=== PATIENT | male | born 1955 ===

== ENCOUNTER → 2020-06-13 11:29 | Outpatient (CLI) | payer MEDICARE, SELFPAY ==
--- NOTE | 2020-06-13 11:35 | DI.MRI.S_ITS ---
PROCEDURE: MR KNEE LT WO CON INDICATIONS: Unspecified internal derangement of left knee TECHNIQUE: Noncontrast sagittal PD fast spin echo and T2 fast spin echo with fat saturation, sagittal 3-D FLASH with fat saturation; coronal T1 spin echo and PD fast spin echo with fat saturation, and axial PD fast spin echo with fat saturation through the knee. COMPARISON: [facility] [place], CR, XR KNEE 4+ VIEWS LEFT, 05/29/2020, 11:12. FINDINGS: Image quality: Excellent. Menisci: Linear oblique and amorphous high signal intensity within the medial meniscal body and posterior horn is present, demonstrating inferior articular surface extension, indicating complex tearing. Lateral meniscus is intact. Cruciate ligaments: The anterior and posterior cruciate ligaments appear intact. Medial structures: There is moderate to high-grade tearing of the proximal and mid aspect of the medial collateral ligament, which demonstrates moderate surrounding T2 signal elevation. Visualized portions of the pes anserinus tendons appear normal. Small amount of medial bursal fluid. Lateral structures: The lateral collateral ligament, long and short heads of the biceps femoris tendon appear intact. The popliteus tendon appears normal. Iliotibial band appears normal. Anterior structures: The quadriceps and patellar tendons appear intact. Patellar alignment is normal. No femoral trochlear dysplasia or ventral trochlear prominence. No edema in the infrapatellar fat pad. Bones and cartilage: No bone marrow contusions or fractures. Mild articular cartilage loss diffusely overlies the weight-bearing aspects of the medial femoral condyle and medial tibial plateau. There is a focal region of moderate articular cartilage loss overlying the lateral patellar apex measuring roughly 10 mm. Joint space: There is physiologic knee joint fluid. No Malin's cyst. Normal appearing synovial plicae are incidentally noted. IMPRESSION: 1. Tricompartmental osteoarthritis with associated articular cartilage loss. 2. Complex tearing of the medial meniscus. 3. Moderate high-grade tearing of the medial collateral ligament. 4. Medial bursitis. Dictated by: Jen Selby M.D. on 06/13/2020 at 13:20 Approved by: Jen Selby M.D. on 06/13/2020 at 13:23
== END ==
PROVIDERS: Referring Provider Orthopaedic Surgery Adult Reconstructive Orthopaedic Surgery; Visit Provider Orthopaedic Surgery Adult Reconstructive Orthopaedic Surgery
DX: M70.52 Other bursitis of knee, left knee (principal); S83.242A Other tear of medial meniscus, current injury, left knee, initial encounter; M17.12 Unilateral primary osteoarthritis, left knee
CPT/HCPCS: 73721

== ENCOUNTER → 2022-05-14 06:34 | Outpatient (CLI) | payer OTHER, SELFPAY ==
--- NOTE | 2022-05-14 07:03 | DI.ECHO.S_ITS ---
Interpretation Summary 1) Mildly to moderately enlarged left ventricle with moderately to severely reduced systolic function (EF 30-35%). 2) Global hypokinesis that is severe in the inferolateral wall and basal anterolateral wall. 3) Mildly enlarged right ventricle with low normal function. 4) There is critically severe aortic stenosis (valve area 0.43cm2, mean gradient 77mmHg, severity ratio 0.13). 5) There is moderate aortic regurgitation. 6) There is moderate mitral regurgitation. 7) No prior Echo available for comparison. Recommend urgent cardiology consultation. [facility] Patient previous findings: Max velocity of 3.9, Mean PG 36mmhg and Aortic valve area of 0.85cm2. Procedure: A two-dimensional transthoracic echocardiogram with color flow and Doppler was performed. The study quality was technically adequate. There is no prior echocardiogram noted for this patient. The patient was in sinus rhythm with heart rates between 60-67 bpm during the exam. Left Ventricle: The left ventricle is mild-moderately dilated. The estimated left ventricular end diastolic volume is 186 ml. The ejection fraction is estimated to be 30-35%. Global hypokinesis that is severe in the inferolateral wall and basal anterolateral wall. Right Ventricle: The right ventricle is mildly dilated. Right ventricular systolic function is at the lower limits of normal. Atria: The left atrium is severely dilated. The right atrium is severely dilated. There is no Doppler evidence for an interatrial shunt. Mitral Valve: The mitral valve leaflets appear moderately thickened, but open well. There is moderate mitral regurgitation. Aortic Valve: The aortic valve is severely calcified. There is severely reduced leaflet mobility. There is severe aortic stenosis. The peak aortic velocity is 5.6 m/sec. The aortic valve mean gradient is 77 mmHg. The calculated aortic valve area is 0.43 cm2. There is moderate aortic regurgitation. Tricuspid Valve: The tricuspid valve leaflets are thin and pliable. There is mild tricuspid regurgitation. The right ventricular systolic pressure is estimated to be at least 66 mmHg based on an estimated right atrial pressure of 8 mm Hg. Pulmonic Valve: The pulmonic valve leaflets are thin and pliable; valve motion is normal. There is mild pulmonic regurgitation. Great Vessels: The aortic root is not well visualized but is probably normal size. The ascending aorta is mildly enlarged. The IVC is dilated (diameter is greater than 2.1 cm) yet it collapses greater than 50% with a sniff. This suggests a right atrial pressure of 8 mm Hg. Pericardium/ Pleura There is no pericardial effusion. There is no pleural effusion. MMode/2D Measurements & Calculations LVIDd: 6.3 cm LVOT diam: 2.2 cm LVIDs: 5.3 cm asc Aorta Diam: 3.9 cm FS: 16.3 % Ao Arch Diam (Prox Trans): 3.2 cm EPSS: 1.5 cm IVSd: 0.94 cm LVPWd: 0.93 cm LV krishna. diameter/BSA (cm/m^2): 3.5 LV sys. diameter/BSA (cm/m^2): 2.9 LA A2 area: 33.3 cm2 RA long axis: 6.2 cm LA A4 area: 29.3 cm2 RA area: 29.8 cm2 LA length (vol): 6.8 cm RA vol: 121.4 ml LA vol: 122.0 ml RA : 67.5 ml/m2 LA vol index: 67.8 ml/m2 IVC diam: 2.2 cm RVD1 (basal): 4.3 cm RVD2 (mid): 3.3 cm TAPSE: 1.9 cm Doppler Measurements & Calculations Ao V2 max: 564.6 cm/sec LVOT Max Jeremi: 66.9 cm/sec Ao V2 mean: 396.9 cm/sec LV V1 max P.8 mmHg Ao max P.5 mmHg LV V1 VTI: 17.1 cm Ao mean P.2 mmHg GAURAV(I,D): 0.46 cm2 Ao V2 VTI: 134.3 cm GAURAV(V,D): 0.43 cm2 sev ratio: 0.13 GAURAV indexed to BSA (cm^2/m^2): 0.26 AI P1/2t: 362.8 msec AI dec slope: 372.5 cm/sec2 MV E max jeremi: 152.1 cm/sec TR max jeremi: 382.0 cm/sec MV A max jeremi: 25.8 cm/sec TR max P.4 mmHg MV E/A: 5.9 PA V2 max: 82.4 cm/sec Med Peak E' Jeremi: 4.0 cm/sec PA V2 mean: 58.8 cm/sec E/E' med: 38.3 PA mean P.5 mmHg Lat Peak E' Jeremi: 5.0 cm/sec PA pr(Accel): 48.2 mmHg E/E' lat: 30.3 E/e' average: 34.3 MV dec time: 0.13 sec MR ERO: 0.23 cm2 MR PISA: 3.8 cm2 SV(LVOT): 62.2 ml MR flow rate: 138.7 cm3/sec MR PISA radius: 0.77 cm Reading Physician:08:41 AM
== END ==
PROVIDERS: PCP Physician Assistant; Referring Provider Physician Assistant; Visit Provider Physician Assistant
DX: I08.3 Combined rheumatic disorders of mitral, aortic and tricuspid valves (principal); I77.89 Other specified disorders of arteries and arterioles
CPT/HCPCS: 93306

== ENCOUNTER → 2023-05-21 07:44 | Outpatient (CLI) | payer OTHER, SELFPAY ==
--- NOTE | 2023-05-21 07:45 | DI.ECHO.S_ITS ---
[facility]---------+ [facility] +---------+ : : [address] : : : : [id number] : : : : Phone: [phone]---------+ Echocardiogram Report + + :Name: EFREN CHEUNG Study Date: 05/21/2023 Height: 66 in : :[facility] ReadingLocation: Weight: 155 lb : : Gender: Male BSA: 1.8 m2 : :: 1955 Age: 68 yrs BP: 141/87 mmHg: :Reason For Study: PROSTHETIC HEART VALVE : :Ordering Physician: STALIN, : :MILLY Performed By: Henny Perry : :Referring: MILLY GANT : + + Interpretation Summary The ejection fraction is estimated to be 50-55%. Diastolic parameters suggest probable normal left ventricular diastolic function and normal filling pressures. The right ventricle is normal in size and function. There is a well-seated, normal functioning bioprosthetic aortic valve. The right ventricular systolic pressure is estimated to be at least 21 mmHg based on an estimated right atrial pressure of 3 mm Hg. The ascending aorta is mildly enlarged, 3.9 cm. Procedure: A two-dimensional transthoracic echocardiogram with color flow and Doppler was performed. The study quality was technically adequate. Comparison is made with the echocardiogram of 05/14/2022. The patient was in sinus bradycardia with heart rates between 48-55 bpm during the exam. Left Ventricle: The left ventricle is normal in size and wall thickness. The ejection fraction is estimated to be 50-55%. Diastolic parameters suggest probable normal left ventricular diastolic function and normal filling pressures. Right Ventricle: The right ventricle is normal in size and function. Atria: The left atrial size is normal. Right atrial size is normal. There is no Doppler evidence for an interatrial shunt. Mitral Valve: The mitral valve leaflets appear moderately thickened, but open well. There is trace mitral regurgitation. Aortic Valve: There is a bioprosthetic aortic valve. 29mm Weems Edwin 3. No paravalvular leak. The peak aortic velocity is 2.3 m/sec. The aortic valve mean gradient is 12 mmHg. EOA 1.5 cm2. No aortic regurgitation is present. Tricuspid Valve: The tricuspid valve is normal in structure and function. There is trace tricuspid regurgitation. The right ventricular systolic pressure is estimated to be at least 21 mmHg based on an estimated right atrial pressure of 3 mm Hg. Pulmonic Valve: The pulmonic valve is not well visualized. There is trace pulmonic regurgitation. Great Vessels: The ascending aorta is mildly enlarged. The IVC is of normal diameter and collapses greater than 50% with a sniff. This suggests a low right atrial pressure of 3 mm Hg. Pericardium/ Pleura There is no pericardial effusion. There is no pleural effusion. MMode/2D Measurements & Calculations LVIDd: 5.1 cm LVOT diam: 2.1 cm LVIDs: 3.7 cm asc Aorta Diam: 3.9 cm FS: 27.7 % Ao Arch Diam (Prox Trans): 3.0 cm IVSd: 0.92 cm LVPWd: 0.94 cm LV krishna. diameter/BSA (cm/m^2): 2.9 LV sys. diameter/BSA (cm/m^2): 2.1 LA A2 area: 18.3 cm2 RA long axis: 5.3 cm LA A4 area: 17.5 cm2 RA area: 15.8 cm2 LA length (vol): 5.6 cm RA vol: 40.4 ml LA vol: 48.7 ml RA : 22.5 ml/m2 LA vol index: 27.2 ml/m2 IVC diam: 1.4 cm RVD1 (basal): 4.1 cm RVD2 (mid): 4.2 cm TAPSE: 2.0 cm Doppler Measurements & Calculations Ao V2 max: 230.3 cm/sec LVOT Max Jeremi: 92.9 cm/sec Ao V2 mean: 163.2 cm/sec LV V1 max P.5 mmHg Ao max P.2 mmHg LV V1 VTI: 19.9 cm Ao mean P.8 mmHg GAURAV(I,D): 1.4 cm2 Ao V2 VTI: 48.7 cm GAURAV(V,D): 1.4 cm2 sev ratio: 0.41 GAURAV indexed to BSA (cm^2/m^2): 0.79 MV E max jeremi: 74.5 cm/sec TR max jeremi: 209.7 cm/sec MV A max jeremi: 100.8 cm/sec TR max P.6 mmHg MV E/A: 0.74 PA V2 max: 90.5 cm/sec Med Peak E' Jeremi: 6.2 cm/sec PA V2 mean: 64.8 cm/sec E/E' med: 11.9 PA mean P.9 mmHg Lat Peak E' Jeremi: 9.3 cm/sec PA pr(Accel): 22.5 mmHg E/E' lat: 8.0 E/e' average: 10.0 MV dec time: 0.30 sec [facility] 68.6 ml Reading Physician:03:58 PM
== END ==
PROVIDERS: Referring Provider Internal Medicine Cardiovascular Disease; Visit Provider Internal Medicine Cardiovascular Disease
DX: Z95.2 Presence of prosthetic heart valve (principal); I77.89 Other specified disorders of arteries and arterioles
CPT/HCPCS: 93306